=== PATIENT | female | born 1935 | race African-American/Black ===

== ENCOUNTER 2018-01-02 10:38 | Inpatient (IN) | payer MEDICARE, MEDICAID ==
[~2018-01-02] VITALS: Ht 171.4 cm; Wt 131.5 kg
[2018-01-02] MEDS ORDERED: LEVOFLOXACIN 750MG PREMIX 150 ML IV ONE (11:00)
[2018-01-02] MEDS ORDERED: SODIUM CHLORIDE 0.9% 1000ML BAG (SEPSIS BOLUS) IV ONE (11:00)
[2018-01-02] MEDS ORDERED: CEFTRIAXONE 1 G PREMIX 50 ML IV ONE (11:00)
[2018-01-02 11:29] LABS: BASOPHILS % 0.6 % (0.0-2.0); HEMATOCRIT. 40.2 % (36.0-48.0); HEMOGLOBIN. 13.4 g/dL (12.0-16.0); LYMPHOCYTES % 13.6 % (20.0-50.0); MEAN CORPUSCULAR HEMOGLOBIN 29.1 pg (28.0-32.0); MEAN CORPUSCULAR VOLUME 87.1 fL (81.0-99.0); MONOCYTES % 10.2 % (2.0-8.0); NEUTROPHILS % 75.6 % (40.0-76.0); PLATELET 164 x1000/uL (130-400); RED BLOOD CELL COUNT 4.62 mill/uL (4.2-5.4); RED CELL DISTRIBUTION WIDTH 14.6 % (11.6-14.6)
[2018-01-02 11:35] LABS: INR 1.3; PROTHROMBIN TIME 13.3 sec (9.4-11.6)
[2018-01-02 11:39] LABS: CHLORIDE 97 mEq/L (98-107)
[2018-01-02 12:00] LABS: CLARITY URINE CLEAR (CLEAR); COLOR URINE YELLOW (YELLOW); KETONES URINE NEGATIVE (NEGATIVE); LEUKOCYTE ESTERASE URINE TRACE (NEGATIVE); NITRITE URINE NEGATIVE (NEGATIVE); OCCULT BLOOD URINE 3+ (NEGATIVE); PROTEIN URINE 2+ (NEGATIVE); SPECIFIC GRAVITY URINE 1.015 (1.005-1.030)
[2018-01-02 14:25] LABS: CREATINE KINASE 25766 IU/L (26-192)
[2018-01-02 22:58] VITALS: BP 180/80
[2018-01-02] MEDS: AMLODIPINE 10MG TABLET PO SCH (23:38)
[2018-01-03] MEDS: SODIUM CHLORIDE 0.9% 1,000 ML IV SCH ×3 (00:22→21:20)
[2018-01-03] MEDS ORDERED: DEXTROSE 50% WATER 50ML SYRINGE IV PRN ×2 (01:00→06:15)
[2018-01-03 04:00] VITALS: BP 138/84
[2018-01-03] MEDS ORDERED: INSULIN REGULAR (HUMULIN R) UD 100 UNITS/ML SYR SUBCUT NR (06:30)
[2018-01-03] MEDS: BLOOD SUGAR DIAGNOSTIC STRIP TEST SCH ×4 (07:20→21:00)
[2018-01-03] MEDS ORDERED: BLOOD SUGAR DIAGNOSTIC STRIP TEST SCH (07:20)
[2018-01-03] MEDS ORDERED: INSULIN LISPRO 100 UNITS/ML SUBCUT SCH ×3 (07:50→21:38)
[2018-01-03 08:00] VITALS: BP 157/74
[2018-01-03 10:33] LABS: HEMATOCRIT. 35.7 % (36.0-48.0); HEMOGLOBIN. 11.6 g/dL (12.0-16.0); MEAN CORPUSCULAR HEMOGLOBIN 28.8 pg (28.0-32.0); MEAN CORPUSCULAR VOLUME 88.4 fL (81.0-99.0); MEAN PLATELET VOLUME 11.2 fl (7.4-10.4); PLATELET 140 x1000/uL (130-400); RED BLOOD CELL COUNT 4.04 mill/uL (4.2-5.4); RED CELL DISTRIBUTION WIDTH 15.1 % (11.6-14.6)
[2018-01-03] MEDS: AMLODIPINE 10MG TABLET PO SCH (10:33)
[2018-01-03] MEDS: ENOXAPARIN 40MG/0.4ML SYR SUBCUT SCH (10:35)
[2018-01-03 12:00] VITALS: BP 122/74
[2018-01-03] MEDS ORDERED: LEVOFLOXACIN 500MG PREMIX 100 ML IV SCH (12:00)
[2018-01-03] MEDS: INSULIN LISPRO 100 UNITS/ML SUBCUT SCH ×4 (12:31→21:19)
[2018-01-03] MEDS: LEVOFLOXACIN 250MG PREMIX 50 ML IV SCH (12:34)
[2018-01-03] MEDS ORDERED: INSNOV SUBCUT (13:02)
[2018-01-03] MEDS ORDERED: PREG75CA MT (13:02)
[2018-01-03] MEDS ORDERED: LIRA0.6P2 SQ (13:02)
[2018-01-03] MEDS ORDERED: BRIM5DRO6 EACHEYE (13:02)
[2018-01-03] MEDS ORDERED: INDA1.255 MT (13:02)
[2018-01-03] MEDS ORDERED: AMLO10TA80 MT (13:02)
[2018-01-03] MEDS ORDERED: INSU100I24 SQ (13:02)
[2018-01-03] MEDS ORDERED: FURO80TA3 MT (13:02)
[2018-01-03] MEDS ORDERED: TOLT4CAP13 MT (13:02)
[2018-01-03] MEDS ORDERED: XALAO EACHEYE (13:02)
[2018-01-03] MEDS ORDERED: CLON0.2T MT (13:02)
[2018-01-03] MEDS ORDERED: DORZ10DR12 EACHEYE (13:02)
[2018-01-03] MEDS ORDERED: METO-411 MT (13:02)
[2018-01-03] MEDS ORDERED: ASPI-1159 MT (13:02)
[2018-01-03] MEDS ORDERED: LOSA100T14 MT (13:02)
[2018-01-03] MEDS ORDERED: PRAV20TA57 MT (13:02)
[2018-01-03] MEDS ORDERED: NAPHADR EACHEYE (13:02)
[2018-01-03 16:00] VITALS: BP 149/67
[2018-01-03] MEDS ORDERED: INSULIN GLARGINE UD 100 UNITS/ML SYR SUBCUT NR (16:00)
[2018-01-03] MEDS ORDERED: INSULIN LISPRO 100 UNITS/ML SUBCUT ONE (18:00)
[2018-01-03 20:00] VITALS: BP 151/61
[2018-01-03] MEDS ORDERED: INSULIN LISPRO 100 UNITS/ML SUBCUT NR (20:00)
[2018-01-03 20:09] LABS: PLATELET ESTIMATE NORMAL
[2018-01-03 20:19] LABS: HEMATOCRIT 34.9 % (36.0-48.0); HEMOGLOBIN 11.4 g/dL (12.0-16.0); MEAN CORPUSCULAR HEMOGLOBIN 28.8 pg (28.0-32.0); MEAN CORPUSCULAR VOLUME 88.2 fL (81.0-99.0); PLATELET 139 x1000/uL (130-400); RED BLOOD CELL COUNT 3.96 mill/uL (4.2-5.4); RED CELL DISTRIBUTION WIDTH 15.2 % (11.6-14.6)
[2018-01-03 20:26] LABS: CHLORIDE 106 mEq/L (98-107)
[2018-01-03 20:37] LABS: CREATINE KINASE MB FRACTION 7.8 ng/mL (0.5-3.6)
[2018-01-03 21:08] LABS: CREATINE KINASE 8598 IU/L (26-192)
[2018-01-03] MEDS ORDERED: SODIUM CHLORIDE 0.9% 1,000 ML IV SCH (23:00)
[2018-01-04] VITALS: BP 150/56
[2018-01-04 04:00] VITALS: BP 145/75
[2018-01-04] MEDS: BLOOD SUGAR DIAGNOSTIC STRIP TEST SCH ×4 (06:27→22:00)
[2018-01-04] MEDS: INSULIN LISPRO 100 UNITS/ML SUBCUT SCH ×4 (06:33→22:13)
[2018-01-04 08:00] VITALS: BP 156/70
[2018-01-04] MEDS: ENOXAPARIN 40MG/0.4ML SYR SUBCUT SCH (09:25)
[2018-01-04] MEDS: AMLODIPINE 10MG TABLET PO SCH (09:26)
[2018-01-04] MEDS: AZTREONAM 1 G in DEXTROSE 5% WATER 50 ML IV SCH ×2 (10:46→21:45)
[2018-01-04] MEDS: INSULIN GLARGINE UD 100 UNITS/ML SYR SUBCUT SCH (10:48)
[2018-01-04] MEDS ORDERED: VANCOMYCIN 2,000 MG in DEXT 5% WATER 500 ML IV SCH (11:00)
[2018-01-04 12:00] VITALS: BP 142/63
[2018-01-04 16:00] VITALS: BP 148/72
[2018-01-04 16:15] LABS: HEMATOCRIT 31.9 % (36.0-48.0); HEMOGLOBIN 10.3 g/dL (12.0-16.0); MEAN CORPUSCULAR HEMOGLOBIN 28.7 pg (28.0-32.0); MEAN CORPUSCULAR VOLUME 88.9 fL (81.0-99.0); PLATELET 133 x1000/uL (130-400); RED BLOOD CELL COUNT 3.58 mill/uL (4.2-5.4); RED CELL DISTRIBUTION WIDTH 15.9 % (11.6-14.6)
[2018-01-04 16:24] LABS: CREATINE KINASE MB FRACTION 2.7 ng/mL (0.5-3.6)
[2018-01-04] MEDS: LEVOFLOXACIN 250MG PREMIX 50 ML IV SCH (18:01)
[2018-01-04 20:00] VITALS: BP 163/67
[2018-01-04] MEDS ORDERED: INSULIN GLARGINE UD 100 UNITS/ML SYR SUBCUT SCH (22:00)
[2018-01-04] MEDS: ACETAMINOPHEN 325MG TABLET PO PRN (22:06)
[2018-01-05] VITALS: BP 150/62
[2018-01-05 04:00] VITALS: BP 158/72
[2018-01-05] MEDS ORDERED: VANCOMYCIN 1250MG in DEXTROSE 5% WATER 250ML IV SCH (06:00)
[2018-01-05] MEDS: BLOOD SUGAR DIAGNOSTIC STRIP TEST SCH ×4 (07:20→21:40)
[2018-01-05] MEDS: ACETAMINOPHEN 325MG TABLET PO PRN ×2 (08:44→13:10)
[2018-01-05] MEDS: AMLODIPINE 10MG TABLET PO SCH (08:44)
[2018-01-05] MEDS: ENOXAPARIN 30MG/0.3ML SYR SUBCUT SCH ×2 (08:45→21:03)
[2018-01-05] MEDS: AZTREONAM 1 G in DEXTROSE 5% WATER 50 ML IV SCH ×3 (08:45→21:02)
[2018-01-05] MEDS: INSULIN LISPRO 100 UNITS/ML SUBCUT SCH ×4 (08:54→21:39)
[2018-01-05] MEDS: INSULIN GLARGINE UD 100 UNITS/ML SYR SUBCUT SCH (10:09)
[2018-01-05 10:13] LABS: HEMATOCRIT 32.3 % (36.0-48.0); HEMOGLOBIN 10.5 g/dL (12.0-16.0); MEAN CORPUSCULAR HEMOGLOBIN 28.7 pg (28.0-32.0); MEAN CORPUSCULAR VOLUME 88.1 fL (81.0-99.0); PLATELET 148 x1000/uL (130-400); RED BLOOD CELL COUNT 3.66 mill/uL (4.2-5.4); RED CELL DISTRIBUTION WIDTH 15.6 % (11.6-14.6)
[2018-01-05] MEDS: LEVOFLOXACIN 250MG PREMIX 50 ML IV SCH (12:18)
[2018-01-05] MEDS ORDERED: INSULIN GLARGINE UD 100 UNITS/ML SYR SUBCUT NR (16:00)
[2018-01-05] MEDS: HYDROCODONE/ACETAMINOPHEN 5/325MG TABLET PO PRN (18:07)
[2018-01-05 18:34] LABS: CREATINE KINASE 2562 IU/L (26-192)
[2018-01-05 20:00] VITALS: BP 155/79
[2018-01-05] MEDS ORDERED: INSULIN GLARGINE UD 100 UNITS/ML SYR SUBCUT SCH (22:00)
[2018-01-06] VITALS: BP 143/56
[2018-01-06] MEDS: HYDROCODONE/ACETAMINOPHEN 5/325MG TABLET PO PRN ×3 (03:10→16:47)
[2018-01-06 04:00] VITALS: BP 160/62
[2018-01-06] MEDS: BLOOD SUGAR DIAGNOSTIC STRIP TEST SCH ×3 (07:50→16:24)
[2018-01-06 07:57] LABS: HEMATOCRIT 33.2 % (36.0-48.0); HEMOGLOBIN 10.8 g/dL (12.0-16.0); MEAN CORPUSCULAR HEMOGLOBIN 28.7 pg (28.0-32.0); MEAN CORPUSCULAR VOLUME 88.7 fL (81.0-99.0); PLATELET 159 x1000/uL (130-400); RED BLOOD CELL COUNT 3.74 mill/uL (4.2-5.4); RED CELL DISTRIBUTION WIDTH 15.4 % (11.6-14.6)
[2018-01-06 08:00] VITALS: BP 157/64
[2018-01-06] MEDS: AZTREONAM 1 G in DEXTROSE 5% WATER 50 ML IV SCH (08:05)
[2018-01-06] MEDS: INSULIN LISPRO 100 UNITS/ML SUBCUT SCH ×3 (08:08→16:51)
[2018-01-06] MEDS ORDERED: VANCOMYCIN 1 G PREMIX 200 ML IV SCH (09:00)
[2018-01-06] MEDS: INSULIN GLARGINE UD 100 UNITS/ML SYR SUBCUT SCH (10:31)
[2018-01-06] MEDS: ENOXAPARIN 30MG/0.3ML SYR SUBCUT SCH (10:32)
[2018-01-06] MEDS: AMLODIPINE 10MG TABLET PO SCH (10:33)
[2018-01-06 12:00] VITALS: BP 166/60
[2018-01-06] MEDS: LEVOFLOXACIN 250MG PREMIX 50 ML IV SCH (12:23)
[2018-01-06] MEDS ORDERED: METRONIDAZOLE 500 MG PREMIX 100 ML IV SCH (14:00)
[2018-01-06 16:00] VITALS: BP 149/60
[2018-01-06] MEDS ORDERED: INSULIN LISPRO 100 UNITS/ML SUBCUT NR ×2 (16:29→17:03)
[2018-01-06] MEDS ORDERED: DIPHENOXYLATE/ATROPINE 2.5/0.025MG TABLET PO NR (16:30)
[2018-01-06 17:21] VITALS: BP 149/60
[2018-01-06] MEDS ORDERED: ENOXAPARIN 40MG/0.4ML SYR SUBCUT SCH (21:00)
[2018-01-07] MEDS ORDERED: INSULIN GLARGINE UD 100 UNITS/ML SYR SUBCUT SCH (10:00)
== END 2018-01-06 18:31 | DRG 683 ==
LOC: ER 10:38 → EDBEDREQ 14:38 → EDBEDREQSVC 14:38 → 6EST 15:22 → EDBEDREQ 15:29 → ENRESERV 21:46
PROVIDERS: ADMIT Internal Medicine; ATTEND Internal Medicine
DX: N17.9 Acute kidney failure, unspecified (principal); M62.82 Rhabdomyolysis; Z68.41 Body mass index [BMI] 40.0-44.9, adult; R65.10 Systemic inflammatory response syndrome (SIRS) of non-infectious origin without acute organ dysfunction; E11.65 Type 2 diabetes mellitus with hyperglycemia; E66.01 Morbid (severe) obesity due to excess calories; D64.9 Anemia, unspecified; E11.22 Type 2 diabetes mellitus with diabetic chronic kidney disease; I12.9 Hypertensive chronic kidney disease with stage 1 through stage 4 chronic kidney disease, or unspecified chronic kidney disease; N18.9 Chronic kidney disease, unspecified; R32 Unspecified urinary incontinence; Z96.659 Presence of unspecified artificial knee joint; W18.39XA Other fall on same level, initial encounter; R26.2 Difficulty in walking, not elsewhere classified; Z90.49 Acquired absence of other specified parts of digestive tract; Z90.710 Acquired absence of both cervix and uterus; Z88.0 Allergy status to penicillin; Z79.4 Long term (current) use of insulin; Z79.82 Long term (current) use of aspirin; Z79.899 Other long term (current) drug therapy; Y93.89 Activity, other specified; Y92.89 Other specified places as the place of occurrence of the external cause; Y99.8 Other external cause status
CPT/HCPCS: 36415; 51702; 71045; 72125; 72131; 72170; 73552; 80048; 80053; 81003; 82550; 82553; 82962; 83036; 83605; 83930; 84145; 84484; 85025; 85027; 85610; 87040; 87086; 93005; 93306; 93970; 96365; 96366; 96367; 97162; 97530; 99291; C1893; J0696; J1650; J1815; J1956; J3370; J3490; J7030; J7060; A4315